=== PATIENT | female | born 1990 | race Asian ===

== ENCOUNTER 2025-03-28 14:22 | Emergency (ER) | payer OTHER, SELFPAY ==
[2025-03-28 14:24] VITALS: BP 148/104
[2025-03-28 14:47] LABS: Hematocrit 40.2 % (37.0-47.0); Hemoglobin 13.8 g/dL (12.0-16.0); Mean Corp Hgb Conc. 34.3 g/dL (33.0-37.0); Mean Corpuscular Volume 88.2 fL (81.0-99.0); Nucleated Red Blood Cells % 0 %; Platelet Count 373 10^3/uL (130-400); Red Cell Dist. Width 12.5 % (11.5-14.5)
[2025-03-28 15:05] LABS: HCG, Serum Qualitative Screen Negative
[2025-03-28 15:11] LABS: ALT (SGPT) 16 U/L (0-35); AST (SGOT) 27 U/L (14-36); Albumin 5.2 g/dl (3.5-5.0); Alkaline Phosphatase 57 U/L (38-126); Blood Urea Nitrogen 13 mg/dl (7-17); Calcium 9.8 mg/dl (8.4-10.2); Carbon Dioxide 25 mmol/L (22-30); Chloride 102 mmol/L (98-107); Glucose 113 mg/dl (70-99); Potassium 3.7 mmol/L (3.5-5.1); Sodium 136 mmol/L (135-145); Total Protein 8.8 g/dl (6.3-8.2); eGFR > 60.00
[2025-03-28 15:21] LABS: Troponin I < 0.012 ng/ml
[2025-03-28] MEDS: TYLENOL 650 MG PO (16:54)
--- NOTE | 2025-03-28 17:47 | ED.GENMED ---
History of Present Illness
General
Chief Complaint: Chest Pain
Time Seen by Provider: 03/28/25 16:25
History of Present Illness
History of Present Illness:
34-year-old female with prior history of angina on aspirin presenting to the emergency department for left-sided chest pain. Patient reports that she woke up this morning, noticed left-sided chest pain. Pain has been constant since onset,
pressure-like pain. No known history of cardiac disease. Notes that she has had issues with chest discomfort in the past, has seen cardiology with unremarkable workup and was started on aspirin. She had to stop the aspirin for the past few days
because she is getting a right sided breast biopsy on Sunday. She notes that she typically does not have issues when she is taking her aspirin. Denies shortness of breath, however does note pain with deep inspiration. Denies any history of blood
clot, recent surgery, recent travel, exogenous estrogen. She is BRCA2 positive, and has a small abnormality that was found on mammogram, which is getting biopsy. Denies abdominal pain or GI symptoms. Denies any trauma to the chest. Denies
additional acute medical complaints
Phy Exam
Physical Exam
Physical Exam:
General: Well-appearing, no clinical signs of dehydration, nontoxic and in no acute distress
HEENT: protecting airway
Neck: appears supple
CV: Normal heart rate, regular rhythm. Focal tenderness to the left sternal chest wall. No ecchymosis. No crepitus
Resp: No accessory muscle use, no increased work of breathing, lungs clear to auscultation bilaterally
Abd: No distention
Extremities: No deformities, no swelling
Neuro: alert, no focal neurologic deficit
: deferred
Rectal: deferred
Psych: Normal affect
Skin: Intact
Scores
Heart Score for Chest Pain Patients
STEMI patient?: No
History: Slightly or Non-Suspicious
ECG: Normal
Age: </= 45 years
Risk Factors: No Risk Factors
Troponin: </= Normal Limit
Heart Score for Chest Pain Patients: 0
Heart Score Risk: 2.5% MACE over next 6 weeks
Course
Orders/Labs/Results
Orders:
Orders
03/28/25 14:26
Electrocardiogram (*1) Urgent
Reason for Study: Chest Pain
EKG- Treatment ONCE
Test Result ONCE
03/28/25 14:36
Complete Blood Count/With Diff Urgent
Comprehensive Metabolic Panel Urgent
HCG, Serum Qualitative Screen Urgent
Troponin I Urgent
03/28/25 16:44
Acetaminophen [Tylenol] 650 mg PO NOW STA
03/28/25 17:04
D-Dimer Urgent
Abnormal Lab Results
03/28/25
14:36
Creatinine 0.5 L mg/dL
(0.6-1.0)
Glucose 113 H mg/dl
(70-99)
Total Protein 8.8 H g/dl
(6.3-8.2)
Albumin 5.2 H g/dl
(3.5-5.0)
03/28/25 14:36
03/28/25 14:36
Vital Signs
Initial and Last Documented VS:
Initial Vital Signs
Temp Pulse Resp BP Pulse Ox
97.8 F 67 16 148/104 100
03/28/25 14:24 03/28/25 14:24 03/28/25 14:24 03/28/25 14:24 03/28/25 14:24
Last Documented Vital Signs
Temp Pulse Resp BP Pulse Ox
97.8 F 61 13 148/104 100
03/28/25 14:24 03/28/25 17:00 03/28/25 16:26 03/28/25 14:24 03/28/25 17:53
MDM/Problems Addressed
MDM/Problems Addressed:
34-year-old female with prior history of angina presenting to the emergency department for left-sided chest pain. Vital signs on arrival are normal.
On exam patient is resting comfortably, no acute distress or discomfort. Unremarkable cardiac and pulmonary exam with the exception of focal reproducible tenderness to the left chest wall. Ultimate suspicion for musculoskeletal component to
patient's symptoms. EKG obtained, nonischemic. Labs obtained prior to my assessment, negative troponin. Patient low risk by heart score without pressing concern for ACS. No significant PE risk factors, however there is is questionable history of
a breast mass that is requiring biopsy. For this reason given patient's symptoms, will obtain D-dimer. Tylenol administered for pain.
18:00 - Dimer within normal limits. On reassessment patient remained stable. Again at this time without concern for serious pathology to patient's symptoms. Feel stable for discharge with outpatient follow-up and supportive therapy. Return
precautions discussed and patient verbalized understanding
*Pulse Oximetry
SaO2: 100
Oxygen Mode of Delivery: Room air
Patient hypoxic: no
*Critical Care Note
Total Time (30-74mins, 75-104mins- exclusive of procedures): Not Applicable
ED Attending Note
-
Portions of this chart may have been created with voice recognition software.� Occasional wrong word or��sound alike� substitutions may have occurred due to the inherent limitations of voice recognition software.
Discharge Plan
Departure
Patient Disposition: Home (Routine Discharge)
Date of Disposition: 03/28/25
Time of Disposition: 18:02
Patient with high blood pressure during this ER visit?: No
Condition: Good
Discharge Problem:
Chest wall pain
Instructions: Chest pain (DC)
Prescriptions:
No Action
Aspirin
325 mg PO PRN
Referrals:
NONE,* [Family Provider, Internal Medicine]
Ned Martinez MD [Active, Cardiology]
Activity Restrictions/Additional Instructions:
You were seen in the emergency department for chest wall pain
You were found to have reassuring EKG, laboratory analysis, vital signs. We suspect a musculoskeletal source of your symptoms. We recommend close and will follow-up with your environmental engineering intern
Please also follow-up closely with your primary care physician.
Return to the emergency department for any worsening of your symptoms, or any development of chest pain, difficulty breathing, abdominal pain with persistent vomiting and inability to tolerate food or liquid by mouth (concern for dehydration),
weakness, headache or confusion, fever greater than 100.4, or any additional symptoms that are concerning to you.
Thank you for choosing [facility].
Interventions
Interventions:
*Neglect/Abuse Screening Last Done: 03/28/25 14:28
[facility] Risk Assessment Tool Last Done: 03/28/25 16:28
*Risk Screen - Suicide (C-SSRS) Last Done: 03/28/25 14:28
ED- Cardiac Assessment Last Done: 03/28/25 16:28
Discharge Date and Time
Print Language: ALBANIAN
[2025-03-28 17:50] LABS: D-Dimer 0.31 ug/mlFEU (0.00-0.50)
[2025-03-28 18:04] VITALS: BP 113/74
== END 2025-03-28 18:13 | disposition home or self-care (01) ==
LOC: EMR 14:22
PROVIDERS: Emergency Medicine; EMERGENCY PHYSICIAN Student in an Organized Health Care Education/Training Program
DX: R07.89 Other chest pain (principal); N63.0 Unspecified lump in unspecified breast; Z15.01 Genetic susceptibility to malignant neoplasm of breast; Z15.02 Genetic susceptibility to malignant neoplasm of ovary; Z15.05 Genetic susceptibility to malignant neoplasm of fallopian tube(s); Z79.82 Long term (current) use of aspirin
CPT/HCPCS: 99284; 80053; 84484; 84703; 85025; 85379; 93005